=== PATIENT | male | born 1960 | race Caucasian/White ===

== ENCOUNTER → 2021-12-12 | Outpatient (CLI) | payer BC | LOC: PT 10:16 | DX: M16.12 Unilateral primary osteoarthritis, left hip (principal) ==

== ENCOUNTER 2021-12-24 10:22 | Outpatient (RCR) | payer BC | END 2022-01-10 | disposition home or self-care (01) | LOC: PT | DX: Z96.642 Presence of left artificial hip joint (principal) ==